=== PATIENT | female | born 1985 | race Two or more races ===

== ENCOUNTER 2017-05-10 09:10 | Inpatient (IN) | payer OTHER ==
[~2017-05-10] VITALS: Ht 175.3 cm; Wt 92.7 kg
[2017-05-10] VITALS (19 sets, daily range): BP systolic 97–166; BP diastolic 54–100
[~2017-05-10 09:10] MED LIST: ACYCLOVIR400 MG PO; COLACE50 MG PO; ENDOCET 5-3251 EACH PO; IBUPROFEN800 MG PO; MULTIVITAMIN1 EAC2 PO; Motrin PO; PRENATAL TABLE1 EAC3; Percocet 5/325,Endoc PO; VICODIN 5-3001 EACH PO; ZANTAC150 MG PO
[2017-05-10] MEDS ORDERED: PRENATAL TABLE1 EAC3 PO (09:39)
[2017-05-10] MEDS ORDERED: ZOLOFT50 MG PO (09:40)
[2017-05-10] MEDS ORDERED: VALTREX1000 MG PO (09:40)
[2017-05-10] MEDS ORDERED: GLUCOPHAGE500 MG PO (09:41)
[2017-05-10 09:49] LABS: BASOPHIL (%) 0.2 % (0-1); EOSINOPHIL (%) 0.3 % (0-5); HEMATOCRIT 35.5 % (36.0-46.0); HEMOGLOBIN 12.1 G/DL (11.9-15.5); IMMATURE GRANULOCYTE (%) 0.3 % (0.0-0.7); LYMPHOCYTE (%) 23.3 % (15-42); LYMPHOCYTE COUNT 2.7 K/uL (1.0-2.8); MCH 29.3 PG (29.0-34.0); MCHC 34.1 G/DL (30.0-36.0); MONOCYTE (%) 5.6 % (3-12); MONOCYTE COUNT 0.6 K/uL (0-0.8); NEUTROPHIL (%) 70.3 % (45-76); PLATELET COUNT 201 K/uL (156-360); RBC DIS.WIDTH-CV 13.1 % (11.8-14.6); RBC DIS.WIDTH-SD 40.9 % (39-53); RED BLOOD COUNT 4.13 M/uL (3.80-5.20); WHITE BLOOD COUNT 11.4 K/uL (4.1-10.2)
[2017-05-10] MEDS ORDERED: IBUPROFEN800 MG PO (12:57)
[2017-05-10 18:19] LABS: BASOPHIL (%) 0.1 % (0-1); EOSINOPHIL (%) 0 % (0-5); HEMOGLOBIN 11.2 G/DL (11.9-15.5); IMMATURE GRANULOCYTE (%) 0.5 % (0.0-0.7); LYMPHOCYTE (%) 9.7 % (15-42); LYMPHOCYTE COUNT 1.5 K/uL (1.0-2.8); MCH 28.8 PG (29.0-34.0); MCHC 32.9 G/DL (30.0-36.0); MCV 87.4 FL (83-99); MONOCYTE (%) 3.8 % (3-12); MONOCYTE COUNT 0.6 K/uL (0-0.8); NEUTROPHIL (%) 85.9 % (45-76); NEUTROPHIL COUNT 13.3 K/uL (1.8-6.4); PLATELET COUNT 181 K/uL (156-360); RBC DIS.WIDTH-CV 12.9 % (11.8-14.6); RBC DIS.WIDTH-SD 41.1 % (39-53); RED BLOOD COUNT 3.89 M/uL (3.80-5.20); WHITE BLOOD COUNT 15.4 K/uL (4.1-10.2)
[2017-05-11 07:04] VITALS: BP 105/58
[2017-05-11 14:34] VITALS: BP 123/60
[2017-05-12 07:25] VITALS: BP 119/34
[2017-05-12 14:44] VITALS: BP 125/75
[2017-05-12] MEDS ORDERED: BREAST PUMP MC (16:08)
== END 2017-05-12 17:00 | disposition home or self-care (01) | DRG 774 ==
LOC: LDRP-OP 09:10 → 2WEST 09:11
PROVIDERS: Nurse Practitioner; Obstetrics & Gynecology
PROC: 3E0R3BZ Introduction of Anesthetic Agent into Spinal Canal, Percutaneous Approach (ICD-10-PCS; principal; 2017-05-10)
PROC: 00HU33Z Insertion of Infusion Device into Spinal Canal, Percutaneous Approach (ICD-10-PCS; principal; 2017-05-10)
PROC: 10E0XZZ Delivery of Products of Conception, External Approach (ICD-10-PCS; principal; 2017-05-10)
DX: O99.824 Streptococcus B carrier state complicating childbirth (principal); O62.2 Other uterine inertia; O24.425 Gestational diabetes mellitus in childbirth, controlled by oral hypoglycemic drugs; O98.32 Other infections with a predominantly sexual mode of transmission complicating childbirth; O99.344 Other mental disorders complicating childbirth; F41.9 Anxiety disorder, unspecified; A60.00 Herpesviral infection of urogenital system, unspecified; Z3A.38 38 weeks gestation of pregnancy; Z37.0 Single live birth
CPT/HCPCS: 82948; 85025; 85025 91; C1755; J0595; J2540; J2550; J3010; J7120

== ENCOUNTER → 2017-05-14 | Outpatient (CLI) | payer OTHER ==
[~2017-05-14] MED LIST changes: +BREAST PUMP MC; +GLUCOPHAGE500 MG PO; +PRENATAL TABLE1 EAC3 PO; +VALTREX1000 MG PO; +ZOLOFT50 MG PO
== END | disposition home or self-care (01) ==
LOC: LAC 13:51
DX: Z39.1 Encounter for care and examination of lactating mother (principal); O92.13 Cracked nipple associated with lactation; O92.79 Other disorders of lactation
CPT/HCPCS: G0463